=== PATIENT | female | born 1950 | race Caucasian/White ===

== ENCOUNTER → 2016-08-07 | Outpatient (REF) | payer MEDICARE, OTHER ==
[2016-08-07 18:12] LABS: ALBUMIN 3.7 GM/DL (3.2-5.2); ALKALINE PHOSPHATASE 83 U/L (45-117); ANION GAP 8 MEQ/L (8-16); BLOOD UREA NITROGEN 9 MG/DL (7-18); CARBON DIOXIDE LEVEL 31 MEQ/L (21-32); CHLORIDE LEVEL 102 MEQ/L (98-107); GLUCOSE, FASTING 134 MG/DL (80-110); POTASSIUM SERUM 4.1 MEQ/L (3.5-5.1); SODIUM LEVEL 141 MEQ/L (136-145)
[2016-08-07 19:45] LABS: ALBUMIN/GLOBULIN RATIO 1.06 (1.00-1.93); ALT/SGPT 25 U/L (12-78); AST/SGOT 19 U/L (15-37); BILIRUBIN,TOTAL 0.6 MG/DL (0.2-1.0); CHOLESTEROL LEVEL 242 MG/DL (<200); CREATININE FOR GFR 0.64 MG/DL (0.55-1.02); GLOMERULAR FILTRATION RATE > 60.0 (>45); TOTAL PROTEIN 7.2 GM/DL (6.4-8.2); TRIGLYCERIDES LEVEL 387 MG/DL (<150)
== END ==
LOC: M SFHCSACK 08:09
PROVIDERS: ATTEND Physician Assistant
DX: I10 Essential (primary) hypertension (principal); E78.2 Mixed hyperlipidemia; E11.9 Type 2 diabetes mellitus without complications; E03.9 Hypothyroidism, unspecified; E55.9 Vitamin D deficiency, unspecified

== ENCOUNTER → 2016-11-13 | Outpatient (REF) | payer MEDICARE, OTHER ==
[2016-11-13 16:38] LABS: ALBUMIN 3.3 GM/DL (3.2-5.2); ALBUMIN/GLOBULIN RATIO 0.94 (1.00-1.93); ALKALINE PHOSPHATASE 73 U/L (45-117); ALT/SGPT 26 U/L (12-78); ANION GAP 8 MEQ/L (8-16); AST/SGOT 28 U/L (15-37); BILIRUBIN,TOTAL 0.5 MG/DL (0.2-1.0); BLOOD UREA NITROGEN 8 MG/DL (7-18); CARBON DIOXIDE LEVEL 31 MEQ/L (21-32); CHLORIDE LEVEL 101 MEQ/L (98-107); CHOLESTEROL LEVEL 200 MG/DL (<200); GLOMERULAR FILTRATION RATE > 60.0 (>45); GLUCOSE, FASTING 146 MG/DL (80-110); POTASSIUM SERUM 3.7 MEQ/L (3.5-5.1); SODIUM LEVEL 140 MEQ/L (136-145); TOTAL PROTEIN 6.8 GM/DL (6.4-8.2); TRIGLYCERIDES LEVEL 185 MG/DL (<150)
== END ==
LOC: M SFHCSACK 08:04
PROVIDERS: ATTEND Physician Assistant
DX: I10 Essential (primary) hypertension (principal); E78.2 Mixed hyperlipidemia; E11.9 Type 2 diabetes mellitus without complications; E03.9 Hypothyroidism, unspecified; E55.9 Vitamin D deficiency, unspecified

== ENCOUNTER → 2017-05-21 | Outpatient (REF) | payer MEDICARE, OTHER ==
[2017-05-21 16:05] LABS: VITAMIN B12 LEVEL 287 PG/ML (247-911)
[2017-05-21 16:23] LABS: ALBUMIN 3.4 GM/DL (3.2-5.2); ALKALINE PHOSPHATASE 58 U/L (45-117); ALT/SGPT 21 U/L (12-78); ANION GAP 8 MEQ/L (8-16); AST/SGOT 18 U/L (15-37); BILIRUBIN,TOTAL 0.4 MG/DL (0.2-1.0); BLOOD UREA NITROGEN 11 MG/DL (7-18); CALCIUM LEVEL 9.1 MG/DL (8.8-10.2); CARBON DIOXIDE LEVEL 30 MEQ/L (21-32); CHLORIDE LEVEL 104 MEQ/L (98-107); CHOLESTEROL LEVEL 242 MG/DL (<200); CREATININE FOR GFR 0.58 MG/DL (0.55-1.02); FREE T4 1.18 NG/DL (0.76-1.46); GLOMERULAR FILTRATION RATE > 60.0 (>45); GLUCOSE, FASTING 100 MG/DL (80-110); POTASSIUM SERUM 4.5 MEQ/L (3.5-5.1); SODIUM LEVEL 142 MEQ/L (136-145); TOTAL PROTEIN 6.8 GM/DL (6.4-8.2); TRIGLYCERIDES LEVEL 229 MG/DL (<150)
[2017-05-21 16:35] LABS: BASO % 0.7 % (0.0-1.0); EOS # 0.1 10^3/uL (0.0-0.50); EOS % 1.9 % (0.0-3.0); IMMATURE GRANULOCYTE % 0.4 % (0-0); LYMPH % 37.8 % (24.0-44.0); MEAN CORPUSCULAR HGB CONC 31.5 g/dl (32.0-36.5); MEAN CORPUSCULAR VOLUME 95.3 fl (80.0-96.0); MONO # 0.6 10^3/uL (0.0-0.8); MONO % 11.7 % (0.0-5.0); NEUTROPHILS # 2.6 10^3/uL (1.8-7.7); NEUTROPHILS % 47.5 % (36.0-66.0); PLATELET COUNT, AUTOMATED 224 10^3/uL (150-450); RED CELL DISTRIBUTION WIDTH 12.5 % (11.5-14.5); WHITE BLOOD COUNT 5.4 10^3/uL (4.0-10.0)
== END ==
LOC: M SFHCSACK 08:20
PROVIDERS: ATTEND Physician Assistant
DX: R53.83 Other fatigue (principal); E11.9 Type 2 diabetes mellitus without complications; E78.2 Mixed hyperlipidemia; E55.9 Vitamin D deficiency, unspecified

== ENCOUNTER → 2017-09-12 | Outpatient (REF) | payer MEDICARE, OTHER ==
[2017-09-12 15:03] LABS: BASO # 0.1 10^3/uL (0.0-0.2); BASO % 0.9 % (0.0-1.0); EOS # 0.2 10^3/uL (0.0-0.50); EOS % 2.6 % (0.0-3.0); HEMATOCRIT 43.3 % (36.0-47.0); IMMATURE GRANULOCYTE % 0.5 % (0-3.0); LYMPH % 34.2 % (24.0-44.0); MEAN CORPUSCULAR HEMOGLOBIN 29.7 pg (27.0-33.0); MEAN CORPUSCULAR HGB CONC 32.3 g/dl (32.0-36.5); MEAN CORPUSCULAR VOLUME 91.9 fl (80.0-96.0); MONO # 0.5 10^3/uL (0.0-0.8); NEUTROPHILS # 3.1 10^3/uL (1.8-7.7); NEUTROPHILS % 52.8 % (36.0-66.0); PLATELET COUNT, AUTOMATED 188 10^3/uL (150-450); RED BLOOD COUNT 4.71 10^6/uL (4.00-5.40); WHITE BLOOD COUNT 5.8 10^3/uL (4.0-10.0)
[2017-09-12 15:18] LABS: ALBUMIN 3.7 GM/DL (3.2-5.2); ALBUMIN/GLOBULIN RATIO 1.06 (1.00-1.93); ALKALINE PHOSPHATASE 62 U/L (45-117); ALT/SGPT 23 U/L (12-78); ANION GAP 7 MEQ/L (8-16); AST/SGOT 21 U/L (7-37); BILIRUBIN,TOTAL 0.6 MG/DL (0.2-1.0); BLOOD UREA NITROGEN 13 MG/DL (7-18); CALCIUM LEVEL 9.4 MG/DL (8.8-10.2); CARBON DIOXIDE LEVEL 29 MEQ/L (21-32); CHLORIDE LEVEL 104 MEQ/L (98-107); CHOLESTEROL LEVEL 175 MG/DL (<200); CHOLESTEROL RISK RATIO 3.365 (<5); CREATININE FOR GFR 0.77 MG/DL (0.55-1.30); GLOMERULAR FILTRATION RATE > 60.0 (>45); GLUCOSE, FASTING 125 MG/DL (70-100); HDL CHOLESTEROL 52 MG/DL (>40); LDL CHOLESTEROL 70.6 MG/DL (<100); NON-HDL-C 123 MG/DL; POTASSIUM SERUM 4.4 MEQ/L (3.5-5.1); SODIUM LEVEL 140 MEQ/L (136-145); TOTAL PROTEIN 7.2 GM/DL (6.4-8.2); TRIGLYCERIDES LEVEL 262 MG/DL (<150)
[2017-09-12 15:26] LABS: ESTIMATED AVERAGE GLUCOSE 126 MG/DL (60-110)
[2017-09-12 15:29] LABS: TOTAL 25(OH) VITAMIN D 62.7 NG/ML (30.0-100.0)
== END ==
LOC: M SFHCSACK 08:06
DX: I10 Essential (primary) hypertension (principal); E78.2 Mixed hyperlipidemia; E11.9 Type 2 diabetes mellitus without complications; E55.9 Vitamin D deficiency, unspecified
CPT/HCPCS: 80053

== ENCOUNTER → 2017-12-10 | Outpatient (REF) | payer MEDICARE, OTHER ==
[2017-12-10 13:39] LABS: ALBUMIN 3.8 GM/DL (3.2-5.2); ALBUMIN/GLOBULIN RATIO 1.09 (1.00-1.93); ALKALINE PHOSPHATASE 65 U/L (45-117); ALT/SGPT 25 U/L (12-78); ANION GAP 6 MEQ/L (8-16); AST/SGOT 21 U/L (7-37); BILIRUBIN,TOTAL 0.5 MG/DL (0.2-1.0); BLOOD UREA NITROGEN 14 MG/DL (7-18); CALCIUM LEVEL 9.4 MG/DL (8.8-10.2); CARBON DIOXIDE LEVEL 30 MEQ/L (21-32); CHLORIDE LEVEL 106 MEQ/L (98-107); CREATININE FOR GFR 0.68 MG/DL (0.55-1.30); FREE T4 1.04 NG/DL (0.76-1.46); GLOMERULAR FILTRATION RATE > 60.0 (>45); GLUCOSE, FASTING 124 MG/DL (70-100); POTASSIUM SERUM 4.5 MEQ/L (3.5-5.1); SODIUM LEVEL 142 MEQ/L (136-145); TOTAL PROTEIN 7.3 GM/DL (6.4-8.2)
[2017-12-10 13:57] LABS: ESTIMATED AVERAGE GLUCOSE 148 MG/DL (60-110); HEMOGLOBIN A1c 6.8 %
== END ==
LOC: M SFHCADAM 11:21
DX: E78.2 Mixed hyperlipidemia (principal); E03.9 Hypothyroidism, unspecified; E11.9 Type 2 diabetes mellitus without complications
CPT/HCPCS: 84443

== ENCOUNTER → 2017-12-29 | Outpatient (CLI) | payer MEDICARE, OTHER | LOC: M WUC 12:40 | DX: M51.36 Other intervertebral disc degeneration, lumbar region (principal); M16.11 Unilateral primary osteoarthritis, right hip; R30.0 Dysuria | CPT/HCPCS: 72110; 87186 ==

== ENCOUNTER → 2017-12-29 | Outpatient (REF) | payer MEDICARE, OTHER | LOC: M LAB REF 16:10 | DX: R30.0 Dysuria (principal) | CPT/HCPCS: 87186 ==

== ENCOUNTER → 2018-07-15 | Outpatient (CLI) | payer MEDICARE, OTHER ==
--- NOTE | 2018-07-15 15:05 | REPMRS ---
Patient History The patient states she has not had a clinical breast exam in over a year. Patient is postmenopausal and is nulliparous. Family history of breast cancer at age 50 or over in maternal aunt, breast cancer at age 50 or over in maternal aunt, breast cancer at age 50 or over in maternal aunt, colorectal cancer at age 50 or over in brother, prostate cancer at age 50 or over in father, breast cancer in maternal cousin, breast cancer in maternal cousin. Benign radio exam breast specimen of the left breast, October 12, 2015. Benign stereotatic loc for ea lesion of the left breast, October 12, 2015. Digital Woman Screen Mammo: July 15, 2018 - Exam #: [id number] Bilateral CC and MLO view(s) were taken. Technologist: Paula Rivera, Technologist Prior study comparison: 2016, bilateral digital mammo screening bilat, performed at [facility]. April 19, 2016, left breast digital mammo diagnostic unilateral, performed at [facility]. June 15, 2013, bilateral digital woman screen mammo, performed at [facility]. FINDINGS: There are scattered fibroglandular densities. There is a needle biopsy marker clip again noted in the left breast unchanged. There has been no change in the appearance of the mammogram from the prior studies. There is a mild amount of scattered fibroglandular density which is fairly symmetric. There is no interval development of dominant mass, architectural distortion, or clustered microcalcification suggestive of malignancy. 3-D tomosynthesis shows no additional findings. Assessment: BI-RADS/ACR category 2 mammogram. Benign finding(s). Recommendation Routine screening mammogram of both breasts in 1 year (for women over age 40). This patient's Lifetime Breast Cancer RIsk is estimated at 12.1 %. This mammogram was interpreted with the aid of an FDA-approved computer-aided dectection system. Electronically Signed By: Allan Tripathi MD 07/15/18 [id number]
== END ==
LOC: M WHC 13:30
PROVIDERS: ATTEND Internal Medicine
DX: Z12.31 Encounter for screening mammogram for malignant neoplasm of breast (principal); Z78.0 Asymptomatic menopausal state

== ENCOUNTER 2018-09-21 11:58 | Inpatient (IN) | payer MEDICARE, OTHER ==
[~2018-09-21] VITALS: Ht 165.1 cm; Wt 94.2 kg
--- NOTE | 2018-09-21 12:35 | REP ---
Clinical: Altered mental status . Comparison: 04/25/2015 . Findings: The mediastinum and cardiac silhouette are stable and within normal limits for portable technique. The lung silva the straight minimal basilar scarring and chronic changes without acute consolidation, effusion, or pneumothorax. Skeletal structures are intact. Impression: No acute cardiopulmonary process appreciated. Electronically Signed by Darek Zendejas MD 09/21/2018 12:26 P
--- NOTE | 2018-09-21 12:36 | REP ---
CT Head without contrast HISTORY: Altered mental status COMPARISON: None An area of decreased attenuation is present in the right basal ganglia. This represents an old lacunar infarction. Areas of decreased attenuation are present in the periventricular white matter. This represents small-vessel ischemic disease. There is no intraparenchymal hemorrhage, acute infarct, mass or midline shift. The ventricular system and cortical sulci as well as subarachnoid space in the posterior fossa are dilated consistent with minimal volume loss. There is no extra cerebral collection. There is no fracture. The visualized sinuses are clear. IMPRESSION: Impression 1. Old right basal ganglia lacunar infarction. 2. Small vessel ischemic disease. 3. Minimal volume loss. Electronically Signed by Jamey Mcclellan MD 09/21/2018 12:29 P
[2018-09-21 12:42] LABS: BASO % 0.5 % (0.0-1.0); EOS # 0.1 10^3/uL (0.0-0.50); EOS % 1.6 % (0.0-3.0); HEMATOCRIT 43.1 % (36.0-47.0); HEMOGLOBIN 14.2 g/dl (12.0-15.5); LYMPH # 2.3 10^3/uL (1.5-4.5); LYMPH % 31.2 % (24.0-44.0); MEAN CORPUSCULAR HEMOGLOBIN 30.3 pg (27.0-33.0); MEAN CORPUSCULAR HGB CONC 32.9 g/dl (32.0-36.5); MEAN CORPUSCULAR VOLUME 92.1 fl (80.0-96.0); MONO # 0.6 10^3/uL (0.0-0.8); MONO % 7.9 % (0.0-5.0); NEUTROPHILS # 4.3 10^3/uL (1.8-7.7); NEUTROPHILS % 58.3 % (36.0-66.0); PLATELET COUNT, AUTOMATED 256 10^3/uL (150-450); RED BLOOD COUNT 4.68 10^6/uL (4.00-5.40); WHITE BLOOD COUNT 7.4 10^3/uL (4.0-10.0)
[2018-09-21] MEDS ORDERED: SIMV20TA2 PO (12:49)
[2018-09-21] MEDS ORDERED: METF-723 PO (12:49)
[2018-09-21] MEDS ORDERED: METO50TA7 PO (12:49)
[2018-09-21] MEDS ORDERED: HYDR200T3 PO (12:49)
[2018-09-21] MEDS ORDERED: TRAM50TA2 PO (12:49)
[2018-09-21] MEDS ORDERED: PANT40TA3 PO (12:49)
[2018-09-21] MEDS ORDERED: LISI-542 PO (12:49)
[2018-09-21] MEDS ORDERED: MELO7.5T7 PO (12:49)
[2018-09-21] MEDS ORDERED: VERA40TA PO (12:49)
[2018-09-21] MEDS ORDERED: JANU100T PO (12:49)
[2018-09-21] MEDS ORDERED: VITA50005 PO (12:49)
[2018-09-21 13:25] LABS: ALBUMIN 4.1 GM/DL (3.2-5.2); ALT/SGPT 71 U/L (12-78); BILIRUBIN,DIRECT 0.2 MG/DL (0.0-0.2); BILIRUBIN,TOTAL 0.6 MG/DL (0.2-1.0); BLOOD UREA NITROGEN 10 MG/DL (7-18); CALCIUM LEVEL 9.3 MG/DL (8.8-10.2); CARBON DIOXIDE LEVEL 29 MEQ/L (21-32); CHLORIDE LEVEL 104 MEQ/L (98-107); CPK CREATINE PHOSPHOKINASE 122 U/L (26-192); CREATININE FOR GFR 0.76 MG/DL (0.55-1.30); ETHYL ALCOHOL (ETHANOL) < 0.003 % (0.000-0.010); GLOMERULAR FILTRATION RATE > 60.0 (>45); GLUCOSE, FASTING 122 MG/DL (70-100); MB/CK RELATIVE INDEX 1.15 (< OR =4); POTASSIUM SERUM 4.3 MEQ/L (3.5-5.1); SODIUM LEVEL 140 MEQ/L (136-145); TOTAL PROTEIN 7.8 GM/DL (6.4-8.2); TROPONIN I < 0.02 NG/ML (< 0.10)
[2018-09-21 13:43] LABS: AMPHETAMINES LEVEL URINE NEGATIVE (NEGATIVE); BARBITURATES URINE NEGATIVE (NEGATIVE); BENZODIAZEPINES URINE NEGATIVE (NEGATIVE); CANNABINOIDS URINE NEGATIVE (NEGATIVE); COCAINE METABOLITE URINE NEGATIVE (NEGATIVE); METHADONE URINE NEGATIVE (NEGATIVE); OPIATES URINE NEGATIVE (NEGATIVE); PHENCYCLIDINE URINE NEGATIVE (NEGATIVE)
[2018-09-21] MEDS ORDERED: ASPIRIN 81 MG CHEW TABLET PO ONE ×2 (14:00→17:00)
[2018-09-21] MEDS ORDERED: METH2.5T48 PO (14:08)
[2018-09-21] MEDS ORDERED: INFL10VL IV (14:08)
[2018-09-21] MEDS ORDERED: VITAE20CA PO (14:08)
[2018-09-21] MEDS ORDERED: LIDO5OIN19 TOP (14:17)
[2018-09-21] MEDS ORDERED: GLUCAGON FOR INJ 1 MG VIAL (J1610) SC PRN (15:00)
[2018-09-21] MEDS ORDERED: DEXTROSE 50% 50 ML SYRINGE IV PRN (15:00)
[2018-09-21] MEDS ORDERED: GLUCOSE 4 GM CHEW TABLET PO PRN (15:00)
[2018-09-21 15:30] LABS: CHOLESTEROL LEVEL 158 MG/DL (<200); HDL CHOLESTEROL 65 MG/DL (>40); LDL CHOLESTEROL 62 MG/DL (<100); NON-HDL-C 93 MG/DL; TRIGLYCERIDES LEVEL 153 MG/DL (<150)
[2018-09-21 15:39] LABS: HEMOGLOBIN A1c 8.3 %
[2018-09-21] MEDS ORDERED: PROHANCE 279.3MG/ML 5ML VIAL (A9576) As Ordered ONE (17:24)
[2018-09-21] MEDS ORDERED: PROHANCE 279.3MG/ML 15ML VIAL (A9576) As Ordered ONE (17:25)
[2018-09-21] MEDS: HumaLOG INSULIN (NovoLOG) PER UNIT SC SCH ×2 (17:30→21:00)
[2018-09-21] MEDS ORDERED: LISINOPRIL 5 MG TAB PO SCH (18:00)
[2018-09-21 18:35] VITALS: BP 144/74
[2018-09-21 18:48] VITALS: BP 144/78
--- NOTE | 2018-09-21 18:51 | REPVR ---
EXAM: MR Angiography Neck With Contrast EXAM DATE/TIME: 09/21/2018 1:31 PM CLINICAL HISTORY: 68 years old, female; Signs and symptoms; Weakness; Additional info: Left sided wkness TECHNIQUE: Magnetic resonance angiography images of the neck with intravenous contrast. COMPARISON: MRA BRAIN W/O CONTRAST 09/21/2018 5:20 PM FINDINGS: Right common carotid artery: Normal. No significant stenosis. No dissection or occlusion. Right internal carotid artery: No significant stenosis. No dissection or occlusion. The mid right ICA is elongated and tortuous. Right external carotid artery: Normal. No significant stenosis. No dissection or occlusion. Right vertebral artery: Normal. No significant stenosis. No dissection or occlusion. Left common carotid artery: Normal. No significant stenosis. No dissection or occlusion. Left internal carotid artery: Normal. Extracranial segment is patent with no significant stenosis. No dissection or occlusion. Left external carotid artery: Normal. No significant stenosis. No dissection or occlusion. Left vertebral artery: Normal. No significant stenosis. No dissection or occlusion. IMPRESSION: No acute vascular findings or stenoses in the neck. COMMENT: Reference per NASCET criteria for degree of stenosis: Mild: less than 50% stenosis. Moderate: 50-69% stenosis. Severe: 70-94% stenosis. Near occlusion: 95-99% stenosis. Electronically signed by: Shawna Nagy On 09/21/2018 18:51:08 PM
--- NOTE | 2018-09-21 18:57 | REPVR ---
EXAM: MR Head Without Contrast EXAM DATE/TIME: 09/21/2018 1:31 PM CLINICAL HISTORY: 68 years old, female; Signs and symptoms; Weakness, extremity; Left; Additional info: Left sided wkness TECHNIQUE: MR of the head without contrast. COMPARISON: MRA BRAIN W/O CONTRAST 09/21/2018 5:20 PM FINDINGS: Brain: Scattered, non-contiguous foci of right frontoparietal true diffusion restriction with mild corresponding cytotoxic edema on the T2-weighted imaging consistent with recent acute to subacute infarcts. No evidence of hemorrhagic conversion. The brain demonstrates generalized volume loss. Patchy increased signal intensity in the deep and to a lesser extent subcortical white matter on the T2-weighted imaging most likely representing mild chronic small vessel change. Ventricles: The ventricles appear mildly enlarged likely reflecting volume loss. Bones/joints: Unremarkable. Soft tissues: Normal. Sinuses: Trace ethmoid mucosal thickening. No acute sinusitis. Mastoid air cells: Normal as visualized. No mastoid effusion. Orbits: Unremarkable. IMPRESSION: Scattered, noncontiguous acute to subacute right frontoparietal cortical infarcts. Electronically signed by: Shawna Nagy On 09/21/2018 18:57:15 PM
--- NOTE | 2018-09-21 19:00 | REPVR ---
EXAM: MR Angiogram Head Without Contrast, Arteries EXAM DATE/TIME: 09/21/2018 1:31 PM CLINICAL HISTORY: 68 years old, female; Signs and symptoms; Weakness; Additional info: Left sided wkness TECHNIQUE: MR angiogram head without contrast. Exam focused on the arteries. COMPARISON: CT Head without contrast 09/21/2018 12:06 PM. MRI-Brain without Contrast 09/21/2018 5:27:18 PM FINDINGS: Right internal carotid artery: Unremarkable. Intracranial segment is patent with no significant stenosis. No aneurysm. Right anterior cerebral artery: Unremarkable. No occlusion or significant stenosis. No aneurysm. Right middle cerebral artery: Unremarkable. No occlusion or significant stenosis. No aneurysm. Right posterior cerebral artery: Unremarkable. No occlusion or significant stenosis. No aneurysm. Right vertebral artery: Unremarkable. No occlusion or significant stenosis. No aneurysm. Left internal carotid artery: Unremarkable. Intracranial segment is patent with no significant stenosis. No aneurysm. Left anterior cerebral artery: Unremarkable. No occlusion or significant stenosis. No aneurysm. Left middle cerebral artery: Unremarkable. No occlusion or significant stenosis. No aneurysm. Left posterior cerebral artery: Unremarkable. No occlusion or significant stenosis. No aneurysm. Left vertebral artery: Unremarkable. No occlusion or significant stenosis. No aneurysm. Basilar artery: Unremarkable. No occlusion or significant stenosis. No aneurysm. IMPRESSION: No major proximal vessel branch occlusion, aneurysm or arteriovenous malformation seen. Electronically signed by: Shawna Nagy On 09/21/2018 19:00:02 PM
[2018-09-21] MEDS: SIMVASTATIN 20 MG TAB PO SCH (21:18)
[2018-09-21] MEDS: HYDROXYCHLOROQUINE 200 MG TAB PO SCH (21:52)
[2018-09-21 21:53] LABS: CPK CREATINE PHOSPHOKINASE 100 U/L (26-192); TROPONIN I < 0.02 NG/ML (< 0.10)
[2018-09-21 22:00] VITALS: BP 145/64
--- NOTE | 2018-09-22 00:07 | CR ---
DATE OF CONSULTATION: 09/21/2018 REFERRING PROVIDER: Tamika Gomez MD REASON FOR CONSULTATION: Suspected stroke. Olivia Adhikari is a 68-year-old female with a past medical history significant for hypertension, poorly controlled diabetes, presenting with a chief complaint of experiencing sudden onset of left-sided numbness and weakness of the face on the right. The patient states the symptoms did not completely resolve so she came to the. emergency department earlier today. Head CT revealed old right basal ganglia ischemic stroke and minimal volume loss. MRI completed did reveal evidence of a right frontal ischemic stroke. The patient, at baseline, does not take aspirin. She has been started on 81 mg aspirin in the emergency department. The patient uses simvastatin at home regularly. Her hemoglobin A1c was noted 8.3, AST 62, triglycerides 153, cholesterol 158 high-density lipoprotein (HDL) 65, low-density lipoprotein (LDL) 62. Thyroid-stimulating hormone (TSH) was 2.32. The patient's blood pressure presently is 141/79. The patient states that her diabetes has been poorly controlled; however, at home her blood pressure has been well-controlled. The patient does not smoke. She has multiple brothers with strokes and her maternal grandfather with stroke. REVIEW OF SYSTEMS: A 14-point review of systems was obtained is negative except as per history of present illness. The patient states that she had some residual paresthesias of the left face, arm and leg left over. The patient states most of her strength has returned though she feels a coldness to her left arm. PAST MEDICAL HISTORY: Hypertension, diabetes, hyperlipidemia. SOCIAL HISTORY: The patient drinks occasional beer. Denies use of any tobacco or illicit drugs. FAMILY HISTORY: Stroke involving the patient's mother, maternal grandfather brothers. HOME MEDICATIONS: Include: - lisinopril 5 mg by mouth daily - metoprolol 50 mg by mouth daily - pantoprazole 40 mg by mouth daily - simvastatin 20 mg by mouth at bedtime PHYSICAL EXAMINATION: Blood pressure is 141/79, pulse rate 65, respiratory rate is 19, temperature is 96.7 degrees Fahrenheit oxygenation 94% on room air. The patient is awake, alert, oriented to person, place and time. Speech language comprehension and repetition are intact. Pupils are 3 mm round, reactive to light. Extraocular movements are intact in all directions without nystagmus. Sensation V1, V2, V3 is intact to light touch. No facial asymmetry to activation. Palate elevates symmetrically. Tongue is midline. No weakness of sternocleidomastoids bilaterally. Hearing is subjectively equal to finger rub. There is no pronator drift. Strength is 5/5 in all four extremities. The patient demonstrates slight decreased sensation to light touch in the left face and left arm, normal [id number] without any signs of ataxia or dysmetria. Deep tendon reflexes are reduced in the lower extremities, 2s in the upper extremities. Absent Babinski signs. Coordination: Normal [id number] without any signs of ataxia, dysmetria. ASSESSMENT: MRI evidence of acute stroke involving the right frontoparietal cortical area. PLAN: Agree with starting aspirin 81 mg by mouth daily. Optimize diabetes, hyperlipidemia. Keep systolic blood pressure 140-180 next 48 hours. Continue telemetry monitoring physical therapy (PT)/occupational therapy (OT), echocardiogram, MR angiogram of the brain. MRA of the carotids did not reveal any acute critical stenosis. MR angiogram of the brain also did not reveal any major occlusion. The patient would benefit by holding antihypertensive medications in order to allow for permissive hypertension. RECOMMENDATIONS: 1. Outpatient physical therapy (PT)/occupational therapy (OT). 2. Continue statin therapy.
[2018-09-22 06:00] VITALS: BP 138/70
[2018-09-22 06:13] LABS: HEMOGLOBIN 13.1 g/dl (12.0-15.5); MEAN CORPUSCULAR HEMOGLOBIN 30.2 pg (27.0-33.0); MEAN CORPUSCULAR HGB CONC 33.6 g/dl (32.0-36.5); MEAN CORPUSCULAR VOLUME 89.9 fl (80.0-96.0); PLATELET COUNT, AUTOMATED 228 10^3/uL (150-450); RED BLOOD COUNT 4.34 10^6/uL (4.00-5.40); WHITE BLOOD COUNT 5.6 10^3/uL (4.0-10.0)
[2018-09-22 06:45] LABS: BLOOD UREA NITROGEN 6 MG/DL (7-18); CALCIUM LEVEL 9.2 MG/DL (8.8-10.2); CARBON DIOXIDE LEVEL 28 MEQ/L (21-32); CHLORIDE LEVEL 104 MEQ/L (98-107); CK-MB VALUE MASS < 1.0 NG/ML (<3.6); CPK CREATINE PHOSPHOKINASE 93 U/L (26-192); CREATININE FOR GFR 0.66 MG/DL (0.55-1.30); GLOMERULAR FILTRATION RATE > 60.0 (>45); GLUCOSE, FASTING 146 MG/DL (70-100); MB/CK RELATIVE INDEX 1.08 (< OR =4); POTASSIUM SERUM 3.6 MEQ/L (3.5-5.1); SODIUM LEVEL 139 MEQ/L (136-145); TROPONIN I < 0.02 NG/ML (< 0.10)
--- NOTE | 2018-09-22 07:38 | ECGEPIP ---
Stationary ECG Study [facility] - ED Test Date: 2018-09-21 Pat Name: CARI SEALS Department: Room: - Gender: F Test Manager: : 1950 Requested By: Tamika Andrade Order Number: [id number] Reading MD: Diaz Bellamy Measurements Intervals [place] Rate: 61 P: LA: 0 QRS: -8 QRSD: 98 T: 34 QT: 409 QTc: 415 Interpretive Statements SINUS RHYTHM BASELINE ARTIFACT AFFECTS INTERPRETATION POOR R WAVE PROGRESSION Electronically Signed On 09-22-2018 7:37:53 EST by Diaz Bellamy
--- NOTE | 2018-09-22 08:30 | HPE ---
DATE OF ADMISSION: 09/21/2018 PRIMARY CARE PROVIDER: Dennis Bloom MD TIPPLE WORKER: Dr. Way in [place]. ORTHOPEDIST AND PAIN MANAGEMENT: Dr. Ac in [place]. HISTORY OF PRESENT ILLNESS: Ms. Adhikari is a 68-year-old female who presents to the emergency room with her brother in the room for concerns of left sided paresthesias that started yesterday suddenly around 9:00 to 10:00 a.m. while she was bending over to clean up after her dog. She states that all of a sudden she felt dizzy, lightheaded, associated with left face, arm, hand, leg weakness and paresthesias. She also admits to three episodes of bladder incontinence associated with this as well, which was not normal for her. She denies ever experiencing this in the past and no recent changes in the medications, travel or sick contacts. She tried waiting it out; however, today her left hand and face numbness continues. She states, "It feels like a tourniquet is on my arm." She denies any slurred speech or facial droop or any episodes of confusion. In the emergency room, imaging thus far is negative; however, her symptoms persist. We will admit to the hospitalist service. Emergency room spoke with neurologist, Dr. Stallings, who recommended continuing her statin, starting aspirin 81 mg, and maintaining a systolic blood pressure 140s to 180s. PAST MEDICAL HISTORY: 1. Hypertension. 2. Alu-aaikogm-isclsjhdf diabetes mellitus type 2. 3. Gastroesophageal reflux disease (GERD). 4. Inflammatory osteoarthritis. 5. Osteopenia. 6. Vitamin D deficiency. 7. Meniere's disease. SURGICAL HISTORY: 1. Right knee in 2014. 2. Left knee in 2000. 3. Sinus cyst. 4. Deviated septum. 5. Carpal tunnel bilaterally. 6. Appendectomy. 7. Tubal . 8. Ovarian cyst removal. 9. Total abdominal hysterectomy. SOCIAL HISTORY: Denies ever smoking. Drinks occasional beer. 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 Lives alone at home with her cats and dogs. ALLERGIES: None. FAMILY HISTORY: Father had prostate cancer. Mother had congestive heart failure (CHF), diabetes mellitus, hypertension, coronary artery disease, cancer, strokes. Brother had stroke. Grandfather had stroke. HOME MEDICATIONS: - vitamin D - hydroxychloroquine - Remicade - lidocaine - Lisinopril - meloxicam - metformin - methotrexate - metoprolol tartrate - Protonix - simvastatin - Januvia - tramadol - verapamil - vitamin E REVIEW OF SYSTEMS: GENERAL: Denies any fevers, chills, night sweats or weight loss. HEENT: Denies any blurry vision, eye pain, ear pain, headaches, dysphagia. CARDIAC: Denies any chest pain, palpitations, or leg swelling. RESPIRATORY: Denies any difficulty breathing, coughing, wheezing, shortness of breath. GASTROINTESTINAL: Denies any nausea, vomiting, abdominal pain or changes in bowel habits. GENITOURINARY: Admits to three episodes of bladder incontinence associated with her paresthesias. NEUROLOGIC: Admits to left sided paresthesias and motor weakness that started suddenly yesterday. Denies any slurred speech, facial droop, visual changes, or auditory changes. Admits to lightheadedness, dizziness associated with the paresthesias. MUSCULOSKELETAL: Able to move all extremities but feels weaker on the left side. SKIN: Denies any new rashes or lesions. PHYSICAL EXAMINATION: VITAL SIGNS: Temperature 96.7, pulse 65, respirations 19, blood pressure 141/79 with a mean arterial pressure of 99, pulse oximetry 94% on room air. GENERAL: Resting comfortably in bed. No acute distress. Alert and oriented times three. Fully conversant. HEENT: Normocephalic, atraumatic. Extraocular muscles intact. Pupils are equal, round and reactive to light. NECK: Supple. Moist mucous membranes. No adenopathy. CARDIAC: Regular rate and rhythm with normal S1, S2. There is a soft 2/6 systolic murmur without any radiation to the carotids. The patient states that she does not have any history of murmur. LUNGS: Clear to auscultation bilaterally. No auditory wheezing, rhonchi or rales. Equal chest rise bilaterally. ABDOMEN: Soft, nontender, nondistended. Positive bowel sounds throughout. Obese. EXTREMITIES: 2+ radial pulses bilaterally. Able to move all extremities. NEUROLOGIC: No slurred speech or facial droop or nystagmus. Visual silva intact bilaterally. Able to smile, puff out cheeks, frown, raise and furrow eyebrows without any asymmetry. Finger to nose and rapid alternating movements are normal. There is a mild left pronator drift that does hit the bed. Equal mechanical maintenance foreman strength bilaterally. 5/5 muscle strength bilaterally. LABORATORIES: Complete blood count (CBC) is normal. Electrolytes normal. BUN and creatinine 10 and 0.76. Cardiac markers negative. TSH 2.32. Urine negative. Toxicology screen negative. IMAGING: Head CT reveals old right basal ganglia lacunar infarct and small vessel ischemic disease and minimal volume loss. Chest x-ray is negative for acute disease. Remaining MRI of the head and neck are pending. IMPRESSION/PLAN: 1. Acute left sided weakness, paresthesias. Concern is for an acute CVA. The patient continues to have left hand and face paresthesias in the emergency room. Neurology has been consulted. Appreciate Dr. Stallings's input. She is already on a statin, which we will continue per recommendations and start her on aspirin [address] her on neuro checks. Lipid panel and A1c is pending, as well as echo. Trend cardiac markers for a total of three sets, first set is negative. Of note, she does have a strong family history of strokes in her mother, brother and grandfather, as well as multiple risk factors, including uncontrolled hypertension and diabetes and obesity. Currently MRI of the head, as well as MRA of the head and neck are pending. 2. Hypertensive urgency. The patient presented to the emergency room with a blood pressure of 194/91, which is now improved. Per neurology, maintaining her systolic blood pressure between 140 to 180. We will continue to closely monitor. Currently, she is continued on her home Lopressor and Lisinopril with hold parameters. If needed, we may resume her home verapamil. 3. Zgq-zvelwrg-uuwbjtkdf diabetes mellitus type 2. Replace home medications with insulin sliding scale. A1/c is pending. 4. Gastroesophageal reflux disease (GERD). Continue home oral Protonix. 5. Inflammatory osteoarthritis. She regularly gets monthly Remicade infusions. Currently, we will continue her hydroxychloroquine. 6. Meniere's disease. Currently stable. 7. Deep vein thrombosis (DVT) prophylaxis. Thromboembolic compression stockings (TEDS) and SCDs until neuro imaging is complete. DISPOSITION: We will admit to the hospitalist service and closely monitor pending neuro evaluation and remaining neuro imaging. My faculty preceptor for this patient encounter was physically present during the encounter and was fully available. All aspects of the patient interview, examination, medical decision making process, and medical care plan development were reviewed and approved by the faculty preceptor. The faculty preceptor is aware and concurs with the plan as stated in the body of this note and will attest to such by his/her co-signature. DINORAH
[2018-09-22] MEDS: ASPIRIN 81 MG ENTERIC TAB PO SCH (08:40)
[2018-09-22] MEDS: PANTOPRAZOLE 40MG TAB (PROTONIX) PO SCH (08:40)
[2018-09-22] MEDS: HYDROXYCHLOROQUINE 200 MG TAB PO SCH ×2 (08:40→20:39)
[2018-09-22] MEDS: HumaLOG INSULIN (NovoLOG) PER UNIT SC SCH ×4 (08:40→21:00)
[2018-09-22] MEDS ORDERED: METOPROLOL TART 50 MG TAB PO SCH (09:00)
[2018-09-22 14:00] VITALS: BP 163/79
--- NOTE | 2018-09-22 14:01 | IPN ---
DATE OF SERVICE: 09/22/2018 ATTENDING PHYSICIAN: Mary Ann Joe MD SUBJECTIVE: The patient examined at bedside. She states that her left-sided deficits are much improved and now only has left fingertip paresthesias. Otherwise, feels back to her normal baseline. MRIs of her imaging yesterday reveals an acute or subacute right frontotemporal cortical infarct. The patient has been updated regarding her results and prognosis and plan of care. All questions answered. No other issues overnight. PHYSICAL EXAMINATION: VITAL SIGNS: Temperature 97.3, pulse 66, respirations 17, blood pressure (BP) 138/70, mean arterial pressure (MAP) of 92, pulse oximetry 93% on room air. GENERAL: Resting comfortably in bed. No acute distress. Alert and oriented times three. Pleasantly conversant. HEENT: Normocephalic, atraumatic. Extraocular muscles intact. No ptosis. NECK: Supple without any jugular venous distention (JVD). CARDIAC: Regular rate and rhythm. Normal S1 and S2. 2/6 systolic murmur present without radiation to the carotids. LUNGS: Clear bilaterally without wheezing, rhonchi, or rales. Equal chest rise. ABDOMEN: Soft, nontender, nondistended. Positive bowel sounds throughout. EXTREMITIES: 2+ radial pulses bilaterally and able to move all extremities. NEUROLOGIC: No focal deficits. Sensation intact throughout. Appears to be back to baseline. LABORATORIES: Complete blood count (CBC) normal. Electrolytes normal. BUN and creatinine 6 and 0.66, calcium 9.2, cardiac markers negative times three sets. IMAGING: Since admission, the following images have resulted: Carotid MR reveals no acute vascular findings or stenosis in the neck. Brain MRA is essentially negative. Brain MRI reveals scattered noncontiguous acute to subacute right frontoparietal cortical infarct. IMPRESSION AND PLAN: 1. Acute cerebrovascular accident (CVA). As noted per her brain MRI results and plans discussed with the patient. Neurology consulted. Appreciate input. Per their recommendations, continue on her current statin and on baby aspirin. The patient is much improved in her left-sided paresthesias and weakness, almost back to baseline. Pending physical therapy (PT) and occupational therapy (OT). She has been counseled on better diabetic control, as her A1c on this admission is 8.3, and lipid panel is essentially well controlled overall. Cardiac markers are negative. Echocardiogram is still pending. Neuro checks have been negative thus far. 2. Hypertensive urgency has resolved. Will continue withholding her home antihypertensives that consist of Lopressor, lisinopril, and verapamil. Per neuro, continue permissive hypertension with goal systolic between 140 to 180. 3. Noninsulin-dependent diabetes mellitus 2. Insulin sliding scale inpatient. A1/c elevated at 8.2. The patient has been counseled on results and lifetime modifications and followup outpatient primary care provider for regimen readjustment. 4. Gastroesophageal reflux disease (GERD). Continue by mouth Protonix. 5. Inflammatory osteoarthritis. Continue her hydroxychloroquine. 6. Meniere disease. Currently stable. 7. Deep vein thrombosis (DVT) prophylaxis. Thromboembolic deterrents (TEDs) and sequential compression devices (SCDs). DISPOSITION: Pending PT and OT, possible discharge tomorrow. My faculty preceptor for this patient encounter was physically present during the encounter and was fully available. All aspects of the patient interview, examination, medical decision-making process, and medical care plan development were reviewed and approved by the faculty preceptor. The faculty preceptor is aware and concurs with the plan as stated in the body of this note and will attest to such by his/her cosignature.
--- NOTE | 2018-09-22 20:32 | ECHO ---
DATE OF PROCEDURE: 09/22/2018 REFERRING PHYSICIAN: Dr. Cota INDICATION: Transient ischemic attack (TIA). Height 165 cm, weight 91 kg. DIMENSIONS: IVS: 1.2 LV: 4.2 LVPW: 0.9 LA: 4.6 Aorta: 2.8 IVC: 1.7 Mitral E wave velocity: 62 A wave: 107 E prime septal: 6.5 E prime lateral: 10.7 FINDINGS: The study is of rather limited technical quality with difficult visualization corresponding to patient's body habitus. Left ventricle is normal size and likely normal systolic function based on fair visualization. Estimated ejection fraction (EF) around 60-65%. Right ventricle also appears normal size and systolic function. Both atria were poorly seen but appear grossly normal. No pericardial effusion is noted. Inferior vena cava is normal size. Aortic root is normal. Aortic arch and abdominal aorta were not well seen. Doppler interrogation reveals no aortic insufficiency and mild stenosis, mean gradient across the aortic valve was 12 mmHg. Mitral valve is functionally competent. Tricuspid valve is also functionally competent. Mitral inflow pattern and tissue Doppler imaging of mitral annulus revealed grade 1 diastolic dysfunction. CONCLUSIONS: 1. Study is of fair technical quality. 2. Normal left ventricular (LV) size with mild left ventricular hypertrophy (LVH) and preserved LV systolic function, grade 1 diastolic dysfunction. 3. Aortic sclerosis resulting in mild aortic stenosis. 4. No significant mitral and tricuspid valvular disease. 5. Likely normal central venous pressure, unable to estimate pulmonary artery pressure. COMMENT: Subacute bacterial endocarditis (SBE) prophylaxis is not recommended.
[2018-09-22] MEDS: SIMVASTATIN 20 MG TAB PO SCH (20:39)
[2018-09-22 22:00] VITALS: BP 158/84
[2018-09-23 00:56] VITALS: BP 158/76
[2018-09-23 06:00] VITALS: BP 158/82
[2018-09-23 06:27] LABS: HEMOGLOBIN 13.3 g/dl (12.0-15.5); MEAN CORPUSCULAR HEMOGLOBIN 30.5 pg (27.0-33.0); MEAN CORPUSCULAR HGB CONC 33.3 g/dl (32.0-36.5); MEAN CORPUSCULAR VOLUME 91.7 fl (80.0-96.0); PLATELET COUNT, AUTOMATED 226 10^3/uL (150-450); RED BLOOD COUNT 4.36 10^6/uL (4.00-5.40); WHITE BLOOD COUNT 7.7 10^3/uL (4.0-10.0)
[2018-09-23 06:58] LABS: BLOOD UREA NITROGEN 9 MG/DL (7-18); CALCIUM LEVEL 8.8 MG/DL (8.8-10.2); CARBON DIOXIDE LEVEL 25 MEQ/L (21-32); CHLORIDE LEVEL 106 MEQ/L (98-107); CREATININE FOR GFR 0.72 MG/DL (0.55-1.30); GLOMERULAR FILTRATION RATE > 60.0 (>45); GLUCOSE, FASTING 154 MG/DL (70-100); SODIUM LEVEL 139 MEQ/L (136-145)
[2018-09-23] MEDS ORDERED: ASPI81TAEC PO (07:22)
[2018-09-23] MEDS: PANTOPRAZOLE 40MG TAB (PROTONIX) PO SCH (08:27)
[2018-09-23] MEDS: HYDROXYCHLOROQUINE 200 MG TAB PO SCH (08:27)
[2018-09-23] MEDS: HumaLOG INSULIN (NovoLOG) PER UNIT SC SCH (08:27)
[2018-09-23] MEDS: ASPIRIN 81 MG ENTERIC TAB PO SCH (08:27)
--- NOTE | 2018-09-23 10:55 | REP ---
CT Head without contrast HISTORY: Left arm numbness COMPARISON: 09/21/2018 An area of decreased attenuation is present in the right basal ganglia. This represents an old lacunar infarction. Areas of decreased attenuation are present in the periventricular and subcortical white matter. This represents small-vessel ischemic disease. There is no intraparenchymal hemorrhage, acute infarct, mass or midline shift. The ventricular system the local sulci are dilated consistent with minimal volume loss. There is no extra cerebral collection. There is no fracture. The visualized sinuses are clear. IMPRESSION: 1. Old right basal ganglia lacunar infarction. 2. Small vessel ischemic disease. 3. Minimal volume loss. Electronically Signed by Jamey Mcclellan MD 09/23/2018 10:46 A
--- NOTE | 2018-09-23 12:48 | DS.PDOC ---
Discharge Summary General Date of Admission Sep 21, 2018 at 21:50 Date of Discharge 09/23/18 Attending Physician: TJ COBURN DO Specialist/Consultants Involve: EMA CENTENO MD Discharge Summary PROCEDURES PERFORMED DURING STAY: 2D Echo ADMITTING DIAGNOSES: 1. Left-sided deficits DISCHARGE DIAGNOSES: 1. Acute CVA 2. Hypertensive urgency, resolved 3. Grade 1 diastolic dysfunction, mild aortic stenosis, mild LVH NIDDM 2, poorly-controlled A1c 8.3 GERD Inflammatory osteoarthritis Mnire's disease COMPLICATIONS/CHIEF COMPLAINT: Arm Paresthesia Left. HISTORY OF PRESENT ILLNESS: Ms. Adhikari is a 68-year-old female who presents to the emergency room with her brother in the room for concerns of left sided paresthesias that started yesterday suddenly around 9:00 to 10:00 a.m. while she was bending over to clean up after her dog. She states that all of a sudden she felt dizzy, lightheaded, associated with left face, arm, hand, leg weakness and paresthesias. She also admits to three episodes of bladder incontinence associated with this as well, which was not normal for her. She denies ever experiencing this in the past and no recent changes in the medications, travel or sick contacts. She tried waiting it out; however, today her left hand and face numbness continues. She states, "It feels like a tourniquet is on my arm." She denies any slurred speech or facial droop or any episodes of confusion. In the emergency room, imaging thus far is negative; however, her symptoms persist. We will admit to the hospitalist service. Emergency room spoke with neurologist, Dr. Centeno, who recommended continuing her statin, starting aspirin 81 mg, and maintaining a systolic blood pressure 140s to 180s. HOSPITAL COURSE: Patient was admitted, placed on neurochecks, which were negative all throughout hospitalization. MRI of the brain on admission revealed acute to subacute right frontotemporal cortical infarcts. She was started on baby aspirin on admission per Neuro recommendations, and continued on her statin. She had BP of 194/91 on admission, which was gradually brought down, and permissive hypertension was allowed during her stay with goal SBP 140-180 per neuro. She worked with physical therapy and occupational therapy, and was cleared in her first sessions. Her workup revealed uncontrolled diabetes, with an A1c of 8.3, lipids were well controlled. Her risk factors for stroke include her obesity, uncontrolled diabetes, uncontrolled hypertension, and family history of strokes in her father, brother, and grandfather. 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 This spontaneously resolved. Repeat CT of the head was negative for any acute changes. Patient felt back to normal and eager to go home. She was cleared for discharge, updated on all results, counseled on working towards tighter blood pressure and diabetes control. Echo during her stay revealed mild LVH, grade 1 diastolic dysfunction, and aortic stenosis. Patient was updated on these results as well, to follow-up outpatient with her PCP in 1 week, and with neurology within 4 weeks. She is to return to ER for any emergency. DISCHARGE MEDICATIONS: Please see below. ALLERGIES: Please see below. PHYSICAL EXAMINATION ON DISCHARGE: VITAL SIGNS: Please see below. GENERAL: Resting comfortably in bed. No acute distress. Alert and oriented times three. Pleasantly conversant. HEENT: Normocephalic, atraumatic. Extraocular muscles intact. No ptosis. NECK: Supple without any jugular venous distention (JVD). CARDIAC: Regular rate and rhythm. Normal S1 and S2. 2/6 systolic murmur present without radiation to the carotids. LUNGS: Clear bilaterally without wheezing, rhonchi, or rales. Equal chest rise. ABDOMEN: Soft, nontender, nondistended. Positive bowel sounds throughout. EXTREMITIES: 2+ radial pulses bilaterally and able to move all extremities. NEUROLOGIC: No focal deficits. Sensation intact throughout. Appears to be back to baseline. LABORATORY DATA: Please see below. IMAGING: * 09/21/[address]: 1. Old right basal ganglia lacunar infarction. 2. Small vessel ischemic disease. 3. Minimal volume loss. * 09/21/2018 CXR: No acute cardiopulmonary process appreciated. * 09/21/2018 carotid MRA: No acute vascular findings or stenoses in the neck. * 09/21/2018 brain MRA: No major proximal vessel branch occlusion, aneurysm or arteriovenous malformation seen. * 09/21/2018 brain MRI: Scattered, noncontiguous acute to subacute right frontoparietal cortical infarcts. * 09/22/2018 2-D echo:1. Study is of fair technical quality. 2. Normal left ventricular (LV) size with mild left ventricular hypertrophy (LVH) and preserved LV systolic function, grade 1 diastolic dysfunction. 3. Aortic sclerosis resulting in mild aortic stenosis. 4. No significant mitral and tricuspid valvular disease. 5. Likely normal central venous pressure, unable to estimate pulmonary artery pressure. Estimated ejection fraction (EF) around 60-65% * 09/23/[address]: 1. Old right basal ganglia lacunar infarction. 2. Small vessel ischemic disease. 3. Minimal volume loss. PROGNOSIS: good ACTIVITY: As tolerated. DIET: 2g sodium, consistent carb, low fat, low cholesterol DISPOSITION: Home DISCHARGE INSTRUCTIONS: 1. Follow-up with PCP within a week, and with neurology within 4 weeks 2. NEW MEDS: Aspirin 81mg 3. Return to ER for emergency DISCHARGE CONDITION: Stable. TIME SPENT ON DISCHARGE: Greater than 35 minutes. Vital Signs/I&Os Vital Signs Date Time Temp Pulse Resp B/P (MAP) Pulse Ox O2 Delivery O2 Flow Rate FiO2 09/23/18 06:00 96.3 83 18 158/82 (107) 95 09/21/18 12:00 Room Air I&O- Last 24 Hours up to 6 AM 09/23/18 06:00 Intake Total 2070 ml Output Total 750 ml Balance 1320 ml Laboratory Data Labs 24H Laboratory Tests 2 09/22/18 20:41: Bedside Glucose (Misc Panel) 162H 09/23/18 06:09: Nucleated Red Blood Cells % (auto) 0.0, Anion Gap 8, Glomerular Filtration Rate > 60.0, Blood Urea Nitrogen 9, Creatinine 0.72, Sodium Level 139, Potassium Level 4.0, Chloride Level 106, Carbon Dioxide Level 25, Calcium Level 8.8 CBC/BMP Laboratory Tests 09/23/18 06:09 Red Blood Count 4.36, Mean Corpuscular Volume 91.7, Mean Corpuscular Hemoglobin 30.5, Mean Corpuscular Hemoglobin Concent 33.3, Red Cell Distribution Width 13.5, Calcium Level 8.8 FSBS Laboratory Tests Test 09/22/18 20:41 Range/Units Bedside Glucose (Misc Panel) 162 80-115 MG/DL Discharge Medications Scheduled Aspirin (Aspirin EC) 81 Mg Tabec, 81 MG PO DAILY Ergocalciferol (Vitamin D) 50,000 Unit Cap, 50,000 UNITS PO QWEEK, (Reported) PT TAKES ON FRIDAY Hydroxychloroquine Sulfate (Hydroxychloroquine Sulfat) 200 Mg Tab, 200 MG PO BID, (Reported) Infliximab Injection (Remicade) 100 Mg/10 Ml Vial, 1 DOSE IV QMONTH, (Reported) PT STATES RECEIVES 400 UNITS EVERY 4 WEEKS; DUE NEXT FRIDAY Lisinopril (Lisinopril) 5 Mg Tab, 5 MG PO QPM, (Reported) TAKES AT DINNER Meloxicam (Meloxicam) 7.5 Mg Tab, 7.5 MG PO DAILY, (Reported) Metformin Hydrochloride (Metformin Hydrochloride ER) 500 Mg Tab, 2,000 MG PO QPM, (Reported) TAKES AT DINNER Methotrexate (Methotrexate) 2.5 Mg Tab, 10 MG PO QWEEK, (Reported) PT TAKES ON FRIDAY Metoprolol Tartrate (Metoprolol Tartrate) 50 Mg Tab, 50 MG PO DAILY, (Reported) Pantoprazole Sodium (Pantoprazole Sodium) 40 Mg Tab, 40 MG PO DAILY, (Reported) Simvastatin (Simvastatin) 20 Mg Tab, 20 MG PO QHS, (Reported) Sitagliptin Phosphate (Januvia) 100 Mg Tab, 100 MG PO DAILY, (Reported) Tramadol HCl (Tramadol HCl) 50 Mg Tab, 50 MG PO QPM, (Reported) Verapamil HCl (Verapamil HCl) 40 Mg Tab, 40 MG PO DAILY, (Reported) Vitamin E (Vitamin E) 200 Unit Cap, 200 UNIT PO DAILY, (Reported) Scheduled PRN (Lidocaine Lucas) 5 % Oin, 1 APLCT TOP DAILY PRN for PAIN, (Reported) PT APPLIES TO LOWER BACK/HIP Allergies Coded Allergies: No Known Allergies (Unverified , 09/21/18) GME ATTESTATION GME ATTESTATION My faculty preceptor for this patient encounter was physically present during the encounter and was fully available. All aspects of the patient interview, examination, medical decision making process, and medical care plan development were reviewed and approved by the faculty preceptor. The faculty preceptor is aware and concurs with the plan as stated in the body of this note and will attest to such by his/her cosignature. GONZALEZ MORE DO Sep 23, 2018 12:48
== END 2018-09-23 13:12 | disposition home or self-care (01) | DRG 66 ==
LOC: M ED 11:58 → M ED INP 15:26 → M MSPAV 18:28 → OBSVTOIN 21:50
PROVIDERS: ADMIT Internal Medicine; ATTEND Internal Medicine
DX: I63.59 Cerebral infarction due to unspecified occlusion or stenosis of other cerebral artery (principal); R20.0 Anesthesia of skin; I10 Essential (primary) hypertension; R32 Unspecified urinary incontinence; E11.65 Type 2 diabetes mellitus with hyperglycemia; K21.9 Gastro-esophageal reflux disease without esophagitis; I16.0 Hypertensive urgency; E66.9 Obesity, unspecified; E11.618 Type 2 diabetes mellitus with other diabetic arthropathy; M85.80 Other specified disorders of bone density and structure, unspecified site; E55.9 Vitamin D deficiency, unspecified; H81.09 Meniere's disease, unspecified ear; Z90.49 Acquired absence of other specified parts of digestive tract; Z90.710 Acquired absence of both cervix and uterus; Z79.84 Long term (current) use of oral hypoglycemic drugs; Z79.899 Other long term (current) drug therapy; Z79.1 Long term (current) use of non-steroidal anti-inflammatories (NSAID)

== ENCOUNTER → 2018-11-13 | Outpatient (CLI) | payer MEDICARE, OTHER ==
[~2018-11-13] MED LIST: ASPI81TAEC PO; HYDR200T3 PO; INFL10VL IV; JANU100T PO; LIDO5OIN19 TOP; LISI-542 PO; MELO7.5T7 PO; METF-723 PO; METH2.5T48 PO; METO50TA7 PO; PANT40TA3 PO; SIMV20TA2 PO; TRAM50TA2 PO; VERA40TA PO; VITA50005 PO; VITAE20CA PO
[2018-11-13 14:43] LABS: ALT/SGPT 48 U/L (12-78)
== END ==
LOC: M LAB 09:59 → M SMT PRO 09:59
PROVIDERS: ATTEND Physician Assistant Medical
DX: M06.09 Rheumatoid arthritis without rheumatoid factor, multiple sites (principal)

== ENCOUNTER → 2019-09-07 | Outpatient (CLI) | payer MEDICARE, OTHER ==
[~2019-09-07] MED LIST changes: +ATOR40TA75 PO; +INVO100T PO; +MOBI4TAB PO; -SIMV20TA2 PO; +SIMV20TA22 PO
--- NOTE | 2019-09-07 16:15 | REPMRS ---
Patient History The patient states she had a clinical breast exam in 2019. Family history of breast cancer at age 50 or over in maternal aunt, breast cancer at age 50 or over in maternal aunt, breast cancer at age 50 or over in maternal aunt, colorectal cancer at age 50 or over in brother, prostate cancer at age 50 or over in father, breast cancer in maternal cousin, breast cancer in maternal cousin. Benign radio exam breast specimen of the left breast, October 12, 2015. Benign stereotatic loc for ea lesion of the left breast, October 12, 2015. Loop recorder inserted 10/2018. Digital Woman Screen Mammo: September 07, 2019 - Exam #: [id number] Bilateral CC and MLO view(s) were taken. Technologist: Alaina Weaver Technologist Prior study comparison: July 15, 2018, bilateral digital woman screen mammo performed at [facility]. 2016, bilateral digital mammo screening bilat, performed at [facility]. April 19, 2016, left breast digital mammo diagnostic unilateral, performed at [facility]. FINDINGS: There are scattered fibroglandular densities. A loop recorder is seen partially projected on the left sided views. There is a needle biopsy marker clip again noted on the left as well. There has been no change in the appearance of the mammogram from the prior studies. There is a mild amount of scattered fibroglandular density which is fairly symmetric. There is no interval development of dominant mass, architectural distortion, or grouped microcalcification suggestive of malignancy. 3-D tomosynthesis shows no additional findings. Assessment: BI-RADS/ACR category 2 mammogram. Benign Findings. Recommendation Routine screening mammogram of both breasts in 1 year (for women over age 40). This patient's Lifetime Breast Cancer Risk is estimated at 10.8 %. This mammogram was interpreted with the aid of an FDA-approved computer-aided dectection system. Electronically Signed By: Allan Tripathi MD 09/07/19 [id number]
== END ==
LOC: M WHC 13:15
PROVIDERS: ATTEND Internal Medicine
DX: Z01.411 Encounter for gynecological examination (general) (routine) with abnormal findings (principal); Z12.31 Encounter for screening mammogram for malignant neoplasm of breast; Z80.0 Family history of malignant neoplasm of digestive organs; Z80.42 Family history of malignant neoplasm of prostate; Z86.018 Personal history of other benign neoplasm
CPT/HCPCS: 77063; 77067; G0101; G0463

== ENCOUNTER 2019-11-07 12:22 | Emergency (ER) | payer MEDICARE, OTHER ==
[~2019-11-07] VITALS: Ht 165.1 cm; Wt 92.6 kg
[2019-11-07 12:24] VITALS: BP 136/71
== END 2019-11-07 13:05 | disposition home or self-care (01) ==
LOC: M ED 12:22
DX: L98.9 Disorder of the skin and subcutaneous tissue, unspecified (principal); E11.9 Type 2 diabetes mellitus without complications; I11.9 Hypertensive heart disease without heart failure; I25.10 Atherosclerotic heart disease of native coronary artery without angina pectoris; E78.5 Hyperlipidemia, unspecified; H81.09 Meniere's disease, unspecified ear; Z86.73 Personal history of transient ischemic attack (TIA), and cerebral infarction without residual deficits; Z79.899 Other long term (current) drug therapy; Z79.84 Long term (current) use of oral hypoglycemic drugs; Z79.82 Long term (current) use of aspirin; Z79.891 Long term (current) use of opiate analgesic

== ENCOUNTER → 2019-11-17 | Outpatient (REF) | payer MEDICARE, OTHER | LOC: M LAB REF 17:11 | PROVIDERS: ATTEND Dermatology | DX: L82.1 Other seborrheic keratosis (principal) ==

== ENCOUNTER → 2021-08-08 | Outpatient (REF) ==
[~2021-08-08] MED LIST changes: +ASPI-569 PO; -ASPI81TAEC PO; -LISI-542 PO; +LISI5TAB11 PO; +PANT40TA29 PO; -PANT40TA3 PO
== END ==
LOC: M LABSMTC 09:05
PROVIDERS: ATTEND Pediatrics
DX: Z11.52 Encounter for screening for COVID-19 (principal)

== ENCOUNTER → 2021-11-06 | Outpatient (CLI) | payer MEDICARE, OTHER | LOC: M WUC 13:28 | PROVIDERS: ATTEND Physician Assistant | DX: S40.011A Contusion of right shoulder, initial encounter (principal); W18.30XA Fall on same level, unspecified, initial encounter; Y92.009 Unspecified place in unspecified non-institutional (private) residence as the place of occurrence of the external cause ==

== ENCOUNTER → 2021-11-21 | Outpatient (CLI) | payer MEDICARE, OTHER | LOC: M WHC 12:00 | PROVIDERS: ATTEND Internal Medicine | DX: Z12.31 Encounter for screening mammogram for malignant neoplasm of breast (principal) ==

== ENCOUNTER → 2022-06-12 | Outpatient (REF) | payer MEDICARE, OTHER | LOC: M SFHCDERM 09:36 | PROVIDERS: ATTEND Physician Assistant | DX: C44.41 Basal cell carcinoma of skin of scalp and neck (principal) ==

== ENCOUNTER → 2024-05-14 | Outpatient (CLI) | payer MEDICARE, OTHER ==
[~2024-05-14] MED LIST changes: -HYDR200T3 PO; +HYDR200T46 PO
== END ==
LOC: M WHC 10:27
PROVIDERS: ATTEND Internal Medicine
DX: Z12.31 Encounter for screening mammogram for malignant neoplasm of breast (principal)

== ENCOUNTER → 2024-11-03 | Outpatient (CLI) | payer MEDICARE, OTHER ==
[~2024-11-03] MED LIST changes: +PROHANCE 279.3MG/ML 15ML VIAL ONE; +PROHANCE 279.3MG/ML 5ML VIAL ONE
== END ==
LOC: M PLAIMG 12:48
PROVIDERS: ATTEND Otolaryngology
DX: R42 Dizziness and giddiness (principal)
CPT/HCPCS: 70553; A9576

== ENCOUNTER → 2024-11-12 | Outpatient (CLI) | payer MEDICARE, OTHER ==
[~2024-11-12] MED LIST changes: -PROHANCE 279.3MG/ML 15ML VIAL ONE; -PROHANCE 279.3MG/ML 5ML VIAL ONE
[2024-11-12 13:42] LABS: THYROID STIMULATING HORMONE 2.213 uIU/ML (0.55-4.78)
[2024-11-12 13:56] LABS: CPK CREATINE PHOSPHOKINASE 138 U/L (34-145); RHEUMATOID FACTOR QUANT < 3.5 IU/ML (<14)
[2024-11-12 13:57] LABS: FREE THYROXINE INDEX 3.2 % (1.3-4.8); T UPTAKE 38.4 % (22.5-37.0); THYROXINE (T4) 8.3 UG/DL (4.5-10.9)
[2024-11-12 13:58] LABS: VITAMIN B12 LEVEL 293 PG/ML (211-911)
[2024-11-12 14:17] LABS: HEMOGLOBIN A1c 6.9 % (4.0-6.0)
[2024-11-15 19:01] LABS: ALDOLASE 3.1 U/L (< OR = 8.1)
[2024-11-16 15:32] LABS: ANA SCREEN, IFA NEGATIVE (NEGATIVE)
[2024-11-16 22:33] LABS: VITAMIN E(ALPHA TOCOPHEROL) 13.5 mg/L (5.7-19.9); VITAMIN E(GAMMA TOCOPHEROL) 1.2 mg/L (<=4.3)
== END ==
LOC: M PLALAB 10:09
PROVIDERS: ATTEND Psychiatry & Neurology Neurology
DX: E53.8 Deficiency of other specified B group vitamins (principal); E07.9 Disorder of thyroid, unspecified; E11.9 Type 2 diabetes mellitus without complications